=== PATIENT | male | born 1970 | race Caucasian/White ===

== ENCOUNTER 2018-11-28 20:41 | Emergency (ER) | payer OTHER ==
[~2018-11-28] VITALS: Ht 177.8 cm; Wt 87.1 kg
[2018-11-28 20:46] VITALS: Ht 177.8 cm; Wt 87.1 kg
[2018-11-29 00:03] VITALS: BP 131/82
== END 2018-11-29 00:03 | disposition home or self-care (01) ==
LOC: ED 20:41
DX: S02.32XA Fracture of orbital floor, left side, initial encounter for closed fracture (principal); S01.111A Laceration without foreign body of right eyelid and periocular area, initial encounter; W22.8XXA Striking against or struck by other objects, initial encounter; Y93.64 Activity, baseball; Y92.89 Other specified places as the place of occurrence of the external cause; Y99.8 Other external cause status
CPT/HCPCS: 90715; J2001